=== PATIENT | male | born 1970 | race Caucasian/White ===

== ENCOUNTER → 2016-08-05 13:45 | Emergency (ER) | payer BC ==
[~2016-08-05 13:45] MED LIST: ASPIRIN PO; BP MED; DARVOCET-N 1001 TAB PO; FAMOTIDINE PO; LEVAQUIN PO; LISINOPRIL PO; TRICOR PO
== END | disposition left against medical advice (07) ==
LOC: CED 13:45
DX: Z53.21 Procedure and treatment not carried out due to patient leaving prior to being seen by health care provider (principal)